=== PATIENT | female | born 1985 | race Hispanic/Latino ===

== ENCOUNTER 2018-10-29 10:08 | Emergency (ER) | payer OTHER ==
[~2018-10-29] VITALS: Ht 160 cm; Wt 95.3 kg
[2018-10-29] MEDS ORDERED: DICYCLOMINE HCL 20 MG/2 ML VIAL IM ONE (10:30)
[2018-10-29 10:46] LABS: BILIRUBIN,URINE NEGATIVE (NEGATIVE); CLARITY,URINE SL CLOUDY (CLEAR); COLOR,URINE YELLOW (YELLOW); KETONES,URINE NEGATIVE (NEGATIVE); LEUKOCYTE ESTERASE ,URINE MODERATE (NEGATIVE); NITRITE,URINE NEGATIVE (NEGATIVE); PROTEIN,URINE DIPSTICK NEGATIVE (NEGATIVE); URINE UROBILINOGEN 0.2 mg/dL (0.2 - 1)
[2018-10-29 10:47] LABS: BASOPHILS # (AUTO) 0.1 (0.0-0.1); BASOPHILS % 0.4 % (0.0-1.0); EOSINOPHILS # (AUTO) 0.1 (0.0-0.4); EOSINOPHILS % 0.7 % (0.0-6.0); HEMATOCRIT 34.5 % (34.2-44.1); HEMOGLOBIN 11.9 g/dL (12.0-16.0); LYMPHOCYTES # (AUTO) 1.8 (1.0-3.2); LYMPHOCYTES % 13.1 % (18.0-39.1); MEAN CORPUSCULAR HEMOGLOBIN 30.6 pg (28-32); MEAN CORPUSCULAR HGB CONC 34.5 g/dL (31-35); MEAN CORPUSCULAR VOLUME 88.7 fL (81-99); MONOCYTES # (AUTO) 0.6 (0.2-0.8); NEUTROPHILS # (AUTO) 11.2 (2.1-6.9); NEUTROPHILS % 80.2 % (38.7-80.0); PLATELET COUNT 246 x10e3/uL (140-360); RED BLOOD COUNT 3.89 x10e6/uL (3.6-5.1); RED CELL DISTRIBUTION WIDTH 13.7 % (11.7-14.4)
[2018-10-29 11:04] LABS: BACTERIA,URINE MANY /HPF; EPITHELIAL CELLS,URINE MANY /LPF
[2018-10-29 11:05] LABS: AMORPHOUS SEDIMENT,URINE MODERATE (FEW)
[2018-10-29 11:08] LABS: YEAST,URINE MODERATE
[2018-10-29 11:12] LABS: ALANINE AMINOTRANSFERASE 14 IU/L (0-55); ALBUMIN 3.4 g/dL (3.5-5.0); ALBUMIN/GLOBULIN RATIO 0.9 (0.8-2.0); ALKALINE PHOSPHATASE 58 IU/L (40-150); ANION GAP 14.8 mmol/L (8-16); BLOOD UREA NITROGEN 5 mg/dL (7-26); BUN/CREATININE RATIO 9 (6-25); CALCIUM 9.3 mg/dL (8.4-10.2); CARBON DIOXIDE 21 mmol/L (22-29); CHLORIDE 100 mmol/L (98-107); CREATININE, SERUM 0.57 mg/dL (0.57-1.11); EST GLOMERULAR FILTRATION RATE > 60 ML/MIN (60-); GLUCOSE 102 mg/dL (74-118); LIPASE 19 U/L (8-78); POTASSIUM 3.8 mmol/L (3.5-5.1); SODIUM 132 mmol/L (136-145)
--- NOTE | 2018-10-29 11:36 | Diagnostic Imaging Report ---
EXAM: US OB RUIZ 1 OR MORE FETUSES DATE: 10/29/2018 12:00 AM INDICATION: well-being, upper abdominal pain. COMPARISON: None TECHNIQUE: Multiple transabdominal images of the uterus and fetus were obtained using grayscale, color Doppler and M-mode. FINDINGS: Estimated due date (LMP) 03/06/2019 Estimated due date (AUA)03/21/2019 Left menstrual period: 05/30/2018 Type of gestation: Single Measurements: BPD: 4.49cm 19w4d HC: 16.51 19w2d AC: 14.00cm 19w3d FL: 3.17cm 19w6d Estimated weight: 300.26 g (11 ounces) +/- 45.04g (2oz) Limited anatomy evaluation: 40 chamber cardiac view not obtained. Regular cardiac rhythm. No evidence of placenta previa. No funneling of the internal os. size is appropriate for gestational age. position: Cephalic Placenta position: Posterior Cervical length: 3.6 cm Amniotic fluid index: 14.06 cm heart rate: 142 BPM IMPRESSION: Single intrauterine with measurements as above. Estimated age of 19 weeks 4 days. If abdominal pain persists, recommend follow-up dedicated anatomy survey at imaging center. Signed by: Esperanza Duenas MD on 10/29/2018 11:32 AM
[2018-10-29 11:39] LABS: HCG,QUANTITATIVE 15864.76 mIU/mL (0-10)
--- NOTE | 2018-10-29 11:44 | NUR ---
DR. POLO AT BEDSIDE UPDATED ON RESULTS
== END 2018-10-29 12:05 | disposition home or self-care (01) ==
LOC: ER 10:08
DX: O23.42 Unspecified infection of urinary tract in pregnancy, second trimester (principal); R10.13 Epigastric pain; R11.0 Nausea; K29.00 Acute gastritis without bleeding
CPT/HCPCS: 36415; 76815; 80053; 81001; 83690; 84702; 85025; 87086; 99284; J0500